=== PATIENT | female | born 1970 | race Caucasian/White ===

== ENCOUNTER → 2017-09-24 | Outpatient (CLI) | payer BC ==
--- NOTE | 2017-09-24 16:18 | RAD ---
Transabdominal pelvic ultrasound 09/24/2017 Indication: Pelvic pain, approximately 2 weeks. Discussion: Ultrasound evaluation of the pelvis is performed. Static images are submitted to PACS. No comparison studies are available. Transvaginal exam was deferred by the patient. Limited visualization of the bladder is unremarkable. The uterus measures 7.3 x 5.2 x 2.9 cm. No free fluid is seen in the pelvis. No focal uterine lesions are identified. The endometrial somewhat poorly visualized but measures approximately 5 mm in diameter. The right ovary measures 2.3 x 3.6 x 3.4 cm. Probable cyst or follicle is seen within the right ovary measuring 1.5 cm in diameter. Evaluation is somewhat limited unenhanced abdominal exam. The left ovary is nonvisualized. Patient reports prior left oophorectomy. Impression: Probable 1.5 cm cyst or follicle within the right ovary. Transabdominal imaging imaging is somewhat limited for evaluation. 3 month follow-up exam could be performed to ensure stability.
== END | disposition home or self-care (01) ==
LOC: US 13:41
PROVIDERS: ATTEND Family Medicine
DX: R10.2 Pelvic and perineal pain (principal)
CPT/HCPCS: 76856

== ENCOUNTER 2018-01-07 08:39 | Emergency (ER) | payer BC ==
[~2018-01-07] VITALS: Ht 177.8 cm; Wt 102.1 kg
--- NOTE | 2018-01-07 09:06 | EKG ---
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
[2018-01-07 09:09] LABS: BASO # 0.1 x10^3/uL (0.0-0.2); BASO % 1 % (0-3); EOS # 0.1 x10^3/uL (0.0-0.7); EOS % 2 % (0-3); HEMATOCRIT 39.7 % (36.0-47.0); HEMOGLOBIN 13.3 g/dL (12.0-15.5); LYMPH # 1.3 x10^3/uL (1.0-4.8); LYMPH % 19 % (24-48); MEAN CORPUSCULAR HEMOGLOBIN 30 pg (25-35); MEAN CORPUSCULAR HGB CONC 34 g/dL (31-37); MEAN CORPUSCULAR VOLUME 89 fL (79-100); MONO # 0.6 x10^3/uL (0.0-1.1); MONO % 8 % (0-9); NEUT # 5.1 x10^3uL (1.8-7.7); NEUT % 71 % (31-73); PLATELET COUNT 329 x10^3/uL (140-400); RED BLOOD COUNT 4.46 x10^6/uL (3.50-5.40); RED CELL DISTRIBUTION WIDTH 14.9 % (11.5-14.5); WHITE BLOOD COUNT 7.2 x10^3/uL (4.0-11.0)
[2018-01-07] MEDS ORDERED: ASPIRIN 81 MG TAB.CHEW PO ONE (09:15)
--- NOTE | 2018-01-07 09:16 | RAD ---
Portable chest, 01/07/2018: HISTORY: Chest pain The heart size and pulmonary vascularity are normal. No pulmonary infiltrates are seen. There is no evidence of pleural fluid. IMPRESSION: No acute cardiopulmonary abnormality is detected. Electronically signed by: Karan Bee MD (01/07/2018 9:13 AM) [facility]
[2018-01-07 09:41] LABS: ALBUMIN 3.6 g/dL (3.4-5.0); ALBUMIN/GLOBULIN RATIO 0.8 (1.0-1.7); CALCIUM 9.2 mg/dL (8.5-10.1); CREATININE 0.8 mg/dL (0.6-1.0); GFR 77.2; MAGNESIUM 2.2 mg/dL (1.8-2.4); POTASSIUM 3.6 mmol/L (3.5-5.1); TOTAL BILIRUBIN 0.4 mg/dL (0.2-1.0); TOTAL PROTEIN 8.3 g/dL (6.4-8.2)
--- NOTE | 2018-01-07 11:00 | RAD ---
EXAM: Abdomen sonogram. HISTORY: Epigastric and left chest pain. TECHNIQUE: Sonographic imaging of the abdomen was performed. COMPARISON: None. FINDINGS: The right hepatic lobe is mildly enlarged. No focal hepatic lesion is seen. The gallbladder is unremarkable. The common bile duct is normal in caliber. The right kidney, pancreas and inferior vena cava are unremarkable. The aorta is partially obscured. IMPRESSION: 1. Mildly enlarged right hepatic lobe. 2. Otherwise, unremarkable abdomen sonogram. Electronically signed by: Krista Barker MD (01/07/2018 10:57 AM) [facility]
[2018-01-07] MEDS ORDERED: ACET-704 PO (11:35)
--- NOTE | 2018-01-07 11:35 | PHYS DOC ---
Past History Past Medical History: Hypertension, Other Past Surgical History: No Surgical History Smoking: Non-smoker Alcohol Use: None Drug Use: None Adult General Chief Complaint Chief Complaint: CHEST PAIN HPI HPI 47-year-old male patient with history of hypertension complaining of intermittent episodes of left-sided chest pain for the last 3 weeks that usually happens several times a day as a sharp and aching pain without radiation. Patient rated her pain 6-7 and denies shortness of breath, nausea and vomiting, fever and chills, palpitation. Patient states she thinks her pain is related to stress. Patient states she had the same pain 3 years ago and had negative cardiac evaluation with diagnose of musculoskeletal pain. Review of Systems Review of Systems Constitutional: Denies fever or chills [] Eyes: Denies change in visual acuity, redness, or eye pain [] HENT: Denies nasal congestion or sore throat [] Respiratory: Denies cough or shortness of breath [] Cardiovascular: No additional information not addressed in HPI [] GI: Denies abdominal pain, nausea, vomiting, bloody stools or diarrhea [] : Denies dysuria or hematuria [] Musculoskeletal: Denies back pain or joint pain [] Integument: Denies rash or skin lesions [] Neurologic: Denies headache, focal weakness or sensory changes [] Endocrine: Denies polyuria or polydipsia [] All other systems were reviewed and found to be within normal limits, except as documented in this note. Current Medications Current Medications Current Medications Medications (Trade) Dose Ordered Sig/Bert Start Time Stop Time Status Last Admin Dose Admin Aspirin (Children'S Aspirin) 324 mg 1X ONCE 01/07/18 09:15 01/07/18 09:16 DC 01/07/18 09:47 325 MG Allergies Allergies Allergies Coded Allergies Type Severity Reaction Last Updated Verified Sulfa (Sulfonamide Antibiotics) Allergy Unknown 01/07/18 Yes ciprofloxacin Allergy Unknown 01/07/18 Yes naproxen Allergy Unknown 01/07/18 Yes tramadol Allergy Unknown 01/07/18 Yes Physical Exam Physical Exam Constitutional: Well nourished, mild distress, non-toxic appearance. [] HENT: Normocephalic, atraumatic. Eyes: PERRLA, EOMI, conjunctiva normal, no discharge. [] Neck: Normal range of motion, no tenderness, supple, no stridor. [] Cardiovascular:Heart rate regular rhythm, no murmur [] Lungs & Thorax: Bilateral breath sounds clear to auscultation, reproducible left-sided chest wall pain. [] Abdomen: Bowel sounds normal, soft, no tenderness, no masses, no pulsatile masses. [] Skin: Warm, dry, no erythema, no rash. [] Back: No tenderness, no CVA tenderness. [] Extremities: No tenderness, no cyanosis, no clubbing, ROM intact, no edema. [] Neurologic: Alert and oriented X 3, normal motor function, normal sensory function, no focal deficits noted. [] Psychologic: Affect anxious, judgement normal, mood normal. [] Current Patient Data Vital Signs Vital Signs Date Time Temp Pulse Resp B/P (MAP) Pulse Ox O2 Delivery O2 Flow Rate FiO2 01/07/18 08:45 98.7 75 13 99 Room Air Lab Results Laboratory Tests Test 01/07/18 08:56 White Blood Count 7.2 x10^3/uL (4.0-11.0) Red Blood Count 4.46 x10^6/uL (3.50-5.40) Hemoglobin 13.3 g/dL (12.0-15.5) Hematocrit 39.7 % (36.0-47.0) Mean Corpuscular Volume 89 fL (79-100) Mean Corpuscular Hemoglobin 30 pg (25-35) Mean Corpuscular Hemoglobin Concent 34 g/dL (31-37) Red Cell Distribution Width 14.9 % (11.5-14.5) H Platelet Count 329 x10^3/uL (140-400) Neutrophils (%) (Auto) 71 % (31-73) Lymphocytes (%) (Auto) 19 % (24-48) L Monocytes (%) (Auto) 8 % (0-9) Eosinophils (%) (Auto) 2 % (0-3) Basophils (%) (Auto) 1 % (0-3) Neutrophils # (Auto) 5.1 x10^3uL (1.8-7.7) Lymphocytes # (Auto) 1.3 x10^3/uL (1.0-4.8) Monocytes # (Auto) 0.6 x10^3/uL (0.0-1.1) Eosinophils # (Auto) 0.1 x10^3/uL (0.0-0.7) Basophils # (Auto) 0.1 x10^3/uL (0.0-0.2) Prothrombin Time 10.5 SEC (9.4-11.4) Prothrombin Time INR 1.0 (0.9-1.1) Sodium Level 137 mmol/L (136-145) Potassium Level 3.6 mmol/L (3.5-5.1) Chloride Level 103 mmol/L (98-107) Carbon Dioxide Level 26 mmol/L (21-32) Anion Gap 8 (6-14) Blood Urea Nitrogen 11 mg/dL (7-20) Creatinine 0.8 mg/dL (0.6-1.0) Estimated GFR (Cockcroft-Gault) 77.2 BUN/Creatinine Ratio 14 (6-20) Glucose Level 92 mg/dL (70-99) Calcium Level 9.2 mg/dL (8.5-10.1) Magnesium Level 2.2 mg/dL (1.8-2.4) Total Bilirubin 0.4 mg/dL (0.2-1.0) Aspartate Amino Transferase (AST) 16 U/L (15-37) Alanine Aminotransferase (ALT) 20 U/L (14-59) Alkaline Phosphatase 105 U/L (46-116) Creatine Kinase 71 U/L (26-192) Creatine Kinase MB (Mass) 0.6 ng/mL (0.0-3.6) Creatine Kinase MB Relative Index 0.8 % (0-4) Troponin I Quantitative < 0.017 ng/mL (0-0.055) HZ-Rny-V-Type Natriuretic Peptide 129 pg/mL (0-124) H Total Protein 8.3 g/dL (6.4-8.2) H Albumin 3.6 g/dL (3.4-5.0) Albumin/Globulin Ratio 0.8 (1.0-1.7) L Lipase 87 U/L (73-393) EKG EKG EKG interpreted by me. EKG at 0848 showed normal sinus rhythm at rate of 76, no acute ST and T-wave abnormalities, poor R-wave progress in anteroseptal leads.[] Radiology/Procedures Radiology/Procedures [address] [address] IMAGING REPORT Signed PATIENT: RAFAELA BUCIO ACCOUNT: [id number] : 1970 LOCATION: ER AGE: 47 SEX: F EXAM STATUS: REG ER ORD. PHYSICIAN: SEN HERNANDEZ MD REASON: chest pain PROCEDURE: PORTABLE CHEST 1V Portable chest, 01/07/2018: HISTORY: Chest pain The heart size and pulmonary vascularity are normal. No pulmonary infiltrates are seen. There is no evidence of pleural fluid. IMPRESSION: No acute cardiopulmonary abnormality is detected. Electronically signed by: Karan Bee MD (01/07/2018 9:13 AM) [facility] DICTATED AND SIGNED BY: KARAN BEE MD DATE: 01/07/18 09 CC: RAFAELA LIPSCOMB MD; SEN HERNANDEZ MD ~ [][place] [address] IMAGING REPORT Signed PATIENT: RAFAELA BUCIO ACCOUNT: [id number] : 1970 LOCATION: ER AGE: 47 SEX: F EXAM STATUS: REG ER ORD. PHYSICIAN: SEN HERNANDEZ MD REASON: epigastric and left chest pain PROCEDURE: ABDOMEN LTD EXAM: Abdomen sonogram. HISTORY: Epigastric and left chest pain. TECHNIQUE: Sonographic imaging of the abdomen was performed. COMPARISON: None. FINDINGS: The right hepatic lobe is mildly enlarged. No focal hepatic lesion is seen. The gallbladder is unremarkable. The common bile duct is normal in caliber. The right kidney, pancreas and inferior vena cava are unremarkable. The aorta is partially obscured. IMPRESSION: 1. Mildly enlarged right hepatic lobe. 2. Otherwise, unremarkable abdomen sonogram. Electronically signed by: Krista Coronado MD (01/07/2018 10:57 AM) [place] [id number] DICTATED AND SIGNED BY: KRISTA CORONADO MD DATE: 01/07/18 105 CC: RAFAELA LIPSCOMB MD; SEN HERNANDEZ MD ~ Course & Med Decision Making Course & Med Decision Making Pertinent Labs and Imaging studies reviewed. (See chart for details) Evaluation of patient in ER showed 47-year-old female patient with intermittent episodes of left-sided chest pain for more than 3 weeks. Patient was anxious and had reproducible left-sided chest pain. Labs and chest x-ray and gallbladder ultrasound and EKG was unremarkable. Patient treated with Toradol and felt better with her pain. Patient instructed to follow-up with her primary care physician regarding the sclerae are chest pain. [] Dragon Disclaimer Dragon Disclaimer This electronic medical record was generated, in whole or in part, using a voice recognition dictation system. Departure Departure: Impression: Primary Impression: Musculoskeletal chest pain Disposition: HOME, SELF-CARE (at 1133) Condition: IMPROVED Referrals: RAFAELA LIPSCOMB MD (PCP) Patient Instructions: Musculoskeletal Pain Additional Instructions: Follow-up with your primary care physician in 3-5 days Return to ER if not getting better Scripts Acetaminophen With Codeine (TYLENOL WITH CODEINE #3 TABLET) 1 Each Tablet 1 TAB PO Q6HRS, #14 TAB Prov: SEN HERNANDEZ MD 01/07/18 SEN HERNANDEZ MD Jan 07, 2018 11:35
[2018-01-07 11:41] VITALS: BP 187/108
== END 2018-01-07 11:47 | disposition home or self-care (01) ==
LOC: ER 08:39
DX: R07.89 Other chest pain (principal); I10 Essential (primary) hypertension; Z88.2 Allergy status to sulfonamides; Z88.1 Allergy status to other antibiotic agents; Z88.6 Allergy status to analgesic agent
CPT/HCPCS: 36415; 71045; 76705; 80053; 82553; 83690; 83735; 83880; 84484; 85025; 85610; 93005; 99285-25

== ENCOUNTER 2018-01-13 20:04 | Inpatient (IN) | payer BC ==
[~2018-01-13] VITALS: Ht 177.8 cm; Wt 116.2 kg
[~2018-01-13 20:04] MED LIST: ACET-704 PO
[2018-01-13] MEDS ORDERED: ASPIRIN 81 MG TAB.CHEW PO ONE (20:45)
[2018-01-13] MEDS ORDERED: ONDANSETRON PF 4 MG/2 ML VIAL. IV ONE (20:45)
--- NOTE | 2018-01-13 20:51 | PHYS DOC ---
Past History Past Medical History: Hypertension, Other Past Surgical History: Oophorectomy Smoking: Non-smoker Alcohol Use: None Drug Use: None Adult General Chief Complaint Chief Complaint: CHEST PAIN HPI HPI 47-year-old female presents with chest pain. Patient states the pain started around 5:30 PM. She rates it as a 3 out of 10 dull pain in the left side of her chest. She said it is worse with coughing. She denies diaphoresis or shortness of breath. The patient has felt "under the weather" most of the day. She has had 4 episodes of nonbloody, nonbilious vomiting. She denies fever, chills, diarrhea, or constipation. No known sick contacts. The patient was seen in this ED last week with similar chest pain. She was not kept overnight. Her only diagnosis at that time she says was her blood pressure was a little high. She was discharged home with no further issues until today. Patient also states that she had a cough all day that started this morning. "It seemed like allergies coming on" but then she had vomiting as well. No history of stress test or cardiac catheter. Review of Systems Review of Systems Constitutional: Denies fever or chills [] Eyes: Denies change in visual acuity, redness, or eye pain [] HENT: Denies nasal congestion or sore throat [] Respiratory: Denies cough or shortness of breath [] Cardiovascular: No additional information not addressed in HPI [] GI: 4 episodes of vomiting[] : Denies dysuria or hematuria [] Musculoskeletal: Denies back pain or joint pain [] Integument: Denies rash or skin lesions [] Neurologic: Denies headache, focal weakness or sensory changes [] Endocrine: Denies polyuria or polydipsia [] All other systems were reviewed and found to be within normal limits, except as documented in this note. Allergies Allergies Allergies Coded Allergies Type Severity Reaction Last Updated Verified Sulfa (Sulfonamide Antibiotics) Allergy Unknown 01/07/18 Yes ciprofloxacin Allergy Unknown 01/07/18 Yes naproxen Allergy Unknown 01/07/18 Yes tramadol Allergy Unknown 01/07/18 Yes Physical Exam Physical Exam Constitutional: Well developed, well nourished, no acute distress, non-toxic appearance. [] HENT: Normocephalic, atraumatic, bilateral external ears normal, oropharynx moist, no oral exudates, nose normal. [] Eyes: PERRLA, EOMI, conjunctiva normal, no discharge. [] Neck: Normal range of motion, no tenderness, supple, no stridor. [] Cardiovascular:Heart rate regular rhythm, no murmur. No chest wall tenderness.[ ] Lungs & Thorax: Bilateral breath sounds clear to auscultation [] Abdomen: Bowel sounds normal, soft, no tenderness, no masses, no pulsatile masses. [] Skin: Warm, dry, no erythema, no rash. [] Back: No tenderness, no CVA tenderness. [] Extremities: No tenderness, no cyanosis, no clubbing, ROM intact, no edema. [] Neurologic: Alert and oriented X 3, normal motor function, normal sensory function, no focal deficits noted. [] Psychologic: Affect normal, judgement normal, mood normal. [] Current Patient Data Vital Signs Vital Signs Date Time Temp Pulse Resp B/P (MAP) Pulse Ox O2 Delivery O2 Flow Rate FiO2 01/13/18 20:11 97.9 88 20 99 Room Air EKG EKG Sinus rhythm, rate 83, normal axis, no ST elevations or depressions. Inverted T wave in lead 3[] Radiology/Procedures Radiology/Procedures [] Impressions: CHEST PA LATERAL dated 01/13/2018 8:38 PM. Comparison: 01/07/2018 Clinical Indication: Chest pain, cough, congestion. Findings: PA and lateral views of the chest were obtained. Heart and mediastinal contours within normal limits. Lungs are clear without focal consolidation. Vascular interstitium within normal limits. No pleural effusion or pneumothorax. Impression: No acute radiographic abnormality. Electronically signed by: Marin Johnson MD (01/13/2018 10:44 PM) [facility] Course & Med Decision Making Course & Med Decision Making Pertinent Labs and Imaging studies reviewed. (See chart for details) Patient's labs are unremarkable. Her EKG is unremarkable. Her troponin is negative. Chest x-ray is unremarkable. Given this is the patient's second visit to the ED in less than a week with chest pain, I feel it is prudent to admit her for chest pain rule out. Dr. Ulrich has accepted the patient for admission. [] Dragon Disclaimer Dragon Disclaimer This electronic medical record was generated, in whole or in part, using a voice recognition dictation system. Departure Departure: Referrals: RAFAELA LIPSCOMB MD (PCP) MIKA AN DO Jan 13, 2018 20:51
--- NOTE | 2018-01-13 21:33 | EKG ---
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
[2018-01-13 22:31] LABS: BASO # 0.1 x10^3/uL (0.0-0.2); BASO % 1 % (0-3); EOS # 0.3 x10^3/uL (0.0-0.7); EOS % 4 % (0-3); HEMATOCRIT 38.5 % (36.0-47.0); HEMOGLOBIN 12.8 g/dL (12.0-15.5); LYMPH # 1.3 x10^3/uL (1.0-4.8); LYMPH % 16 % (24-48); MEAN CORPUSCULAR HEMOGLOBIN 30 pg (25-35); MEAN CORPUSCULAR HGB CONC 33 g/dL (31-37); MEAN CORPUSCULAR VOLUME 90 fL (79-100); MONO # 0.9 x10^3/uL (0.0-1.1); MONO % 11 % (0-9); NEUT # 5.8 x10^3uL (1.8-7.7); NEUT % 69 % (31-73); PLATELET COUNT 242 x10^3/uL (140-400); RED BLOOD COUNT 4.29 x10^6/uL (3.50-5.40); RED CELL DISTRIBUTION WIDTH 14.8 % (11.5-14.5); WHITE BLOOD COUNT 8.4 x10^3/uL (4.0-11.0)
[2018-01-13 22:47] LABS: ALBUMIN 3.5 g/dL (3.4-5.0); ALBUMIN/GLOBULIN RATIO 0.8 (1.0-1.7); CALCIUM 8.8 mg/dL (8.5-10.1); CREATININE 0.8 mg/dL (0.6-1.0); GFR 77.2; TOTAL BILIRUBIN 0.3 mg/dL (0.2-1.0); TOTAL PROTEIN 7.8 g/dL (6.4-8.2)
--- NOTE | 2018-01-13 22:48 | RAD ---
CHEST PA LATERAL dated 01/13/2018 8:38 PM. Comparison: 01/07/2018 Clinical Indication: Chest pain, cough, congestion. Findings: PA and lateral views of the chest were obtained. Heart and mediastinal contours within normal limits. Lungs are clear without focal consolidation. Vascular interstitium within normal limits. No pleural effusion or pneumothorax. Impression: No acute radiographic abnormality. Electronically signed by: Marin Johnson MD (01/13/2018 10:44 PM) [facility]
[2018-01-14] MEDS ORDERED: ONDANSETRON PF 4 MG/2 ML VIAL. IV PRN (00:30)
[2018-01-14 01:44] VITALS: BP 144/89
[2018-01-14] MEDS ORDERED: LISI-338 PO (02:42)
[2018-01-14] MEDS ORDERED: PSYL3.4P PO (02:42)
[2018-01-14 06:30] VITALS: BP 121/80
[2018-01-14] MEDS ORDERED: ACETAMINOPHEN 325 MG TABLET PO PRN (09:00)
[2018-01-14 11:26] VITALS: BP 136/83
[2018-01-14 12:54] LABS: ALBUMIN 3.1 g/dL (3.4-5.0); ALBUMIN/GLOBULIN RATIO 0.8 (1.0-1.7); CALCIUM 8.5 mg/dL (8.5-10.1); CREATININE 0.8 mg/dL (0.6-1.0); GFR 77.2; POTASSIUM 3.9 mmol/L (3.5-5.1); TOTAL BILIRUBIN 0.3 mg/dL (0.2-1.0); TOTAL PROTEIN 7.1 g/dL (6.4-8.2)
--- NOTE | 2018-01-14 12:57 | HP ---
ADMIT DATE: 01/14/2018 HISTORY OF PRESENT ILLNESS: The patient is a 47-year-old female patient, who came to the Emergency Room yesterday complaining of chest pain that started around 5:30 p.m., she rated as 3/10, dull pain in her left side of her chest. She said it is worse with coughing. She denied any diaphoresis or shortness of breath. She had 4 episodes of nonbloody, nonbilious vomiting. She denied any fever, chills, diarrhea or constipation. No known sick contacts. The patient was seen in the Emergency Room last week with similar chest pain. At that time, her blood pressure was little high. She was discharged home with no further issues. The patient also stated that she had a cough all day that started this morning and seemed to be like allergies coming on. She stated that she has never had any stress test or cardiac catheterization before. She was evaluated in the Emergency Room and her lab work was mostly unremarkable. Her first set of cardiac enzymes showed troponin to be less than 0.017. On further questioning her, she stated that all her symptoms are similar to her presentation when she has had ulcers in her stomach. At that time, she had upper and lower GI endoscopy and was diagnosed with what seemed to be antral gastric ulcer. PAST MEDICAL HISTORY: Significant for peptic ulcer disease and hypertension. PAST SURGICAL HISTORY: Significant for left oophorectomy for dermoid cyst. She has also had esophagogastroduodenoscopy and colonoscopy. ALLERGIES: She is allergic to SULFA DRUGS, CIPROFLOXACIN, NAPROXEN, and TRAMADOL. MEDICATIONS: She is currently on following medications: She is on lisinopril 5 mg once a day, Tylenol with Codeine 1 tablet every 6 hours and Psyllium Husk for Metamucil single packet 1 packet twice a day. FAMILY HISTORY: She has 2 brothers older has hypertension and diabetes. He is 58 years old. Next brother is 57-year-old and healthy. Her father is alive at the age of 87 and is known to have hypertension, Alzheimer's disease. Her mother is alive at age 80 and has diabetes. SOCIAL HISTORY: She is single, never , has no children. She does not smoke, drink alcohol or use recreational drugs. 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 REVIEW OF SYSTEMS: The patient denied any blurring of vision, cataract, glaucoma or macular degeneration. Denied any earache, tinnitus or sensorineural deafness. Denied any nosebleeds, stuffy nose or postnasal drip. Denied any sore throat, sore tongue, toothache, hoarseness of voice or difficulty swallowing. Did have recurrent bouts of nausea, vomiting. She vomited once this morning. There is no blood in the vomitus. Denied any diarrhea or constipation. Denied any hematemesis, melena, or hematochezia. Denied any dysuria, frequency or hematuria. Did complain of left-sided chest pain, denied any shortness of breath, orthopnea, paroxysmal nocturnal dyspnea. She has cough, mostly dry. Denied any chills, rigors or fever. PHYSICAL EXAMINATION: GENERAL: On examining her, she looked well and was clearly in no apparent respiratory distress. No pallor, jaundice, cyanosis, or thyromegaly. No jugular venous distension. No limb edema. VITAL SIGNS: Her heart rate was 75, blood pressure was 125/86, temperature was 97.9, respiratory rate 20, and oxygen saturation was 97%. HEAD, EYES, EARS, NOSE AND THROAT: Showed normocephalic, atraumatic. NECK: Supple. HEART: Showed normal first and second heart sounds with no gallop, rub or murmur. CHEST: Clear to auscultation. No crepitation or rhonchi. ABDOMEN: Distended, soft, and nontender. NEUROLOGIC: She was awake, alert, responding appropriately. All cranial nerves intact. EXTREMITIES: She moves extremities without difficulty. LABORATORY DATA: On admission showed a serum sodium 136, potassium 4, chloride 102, bicarbonate 26, anion gap of 8, BUN 10, creatinine 0.8, estimated GFR was 77 mL per minute. Her glucose was 95, calcium was 8.8. Total bilirubin, AST, ALT, alkaline phosphatase were normal. Total protein 7.8, albumin 3.5. White cell count was 8400, hemoglobin 12.8, hematocrit 38, MCV 90 and platelet count 242,000 with normal manual differential. Her chest x-ray showed that the heart and mediastinum contour is within normal limits. Lungs are clear without focal consolidation, vascular interstitium are within normal limits. No pleural effusion or pneumothorax. IMPRESSION: In summary, this is a 47-year-old female patient, who comes with recurrent bouts of nausea, vomiting and left-sided chest pain. She apparently has history of peptic ulcer disease before. She continued to have nausea and vomiting. cardiac enzyme was negative. PLAN: My plan is to start her on IV fluid, IV Protonix and Zofran and start her on a clear liquid diet and advance as tolerated. JUSTUS WALSH MD DR: JOSE/shahana JOB#: [id number] / [id number]
[2018-01-14] MEDS: POTASSIUM CL 20MEQ D5-0.9%NACL 1,000 ML IV SCH ×2 (13:00→21:19)
[2018-01-14] MEDS: PANTOPRAZOLE IV 40 MG VIAL. IVP SCH ×2 (13:00→21:16)
[2018-01-14 15:05] VITALS: BP 118/77
[2018-01-14 19:15] VITALS: BP 133/85
[2018-01-14 22:25] VITALS: BP 111/72
--- NOTE | 2018-01-14 22:45 | PN ---
DATE: 01/14/2018 SUBJECTIVE: The patient is a 47-year-old female patient who came in yesterday with chest pain, recurrent bouts of nausea, and vomiting. She has 2 more sets of cardiac enzymes, which were negative. The pain only happens when she is coughing and she continued to have recurrent bouts of nausea, vomiting, though no hematemesis or melena. OBJECTIVE: GENERAL: When I examined her this afternoon, she looked well and was clearly in no apparent respiratory distress. No pallor, jaundice, cyanosis, or thyromegaly. No jugular venous distension. No lower limb edema. VITAL SIGNS: Her heart rate was 72, blood pressure was 136/83, temperature was 98.2, respiratory rate 20, and oxygen saturation was 94%. HEAD, EYES, EARS, NOSE AND THROAT: Normocephalic, atraumatic. NECK: Supple. HEART: Showed normal first and second heart sounds. No gallop, rub or murmur. CHEST: Clear to auscultation. No crepitation or rhonchi. ABDOMEN: Distended, soft, and nontender. No guarding or rigidity. No organomegaly. Hernial orifice intact. Bowel sounds normal. NEUROLOGIC: She was awake, alert, responding appropriately. Cranial nerves intact. She moves extremities without difficulty. She ambulates without assistance or assistive devices. LABORATORY DATA: This morning, she has 2 sets of cardiac enzymes, which were negative. PLAN: Given that she has a history of gastric ulcers, I decided to start her on Protonix 40 mg intravenous twice a day, Zofran 4 mg intravenous every 4 hours, I started her on D5 half normal with 20 mEq of potassium chloride intravenous 800 mL per hour and repeat her labs lipase and start her on a clear liquid diet, to advance as tolerated. JUSTUS WALSH MD DR: JOSE/shahana JOB#: [id number] / [id number]
[2018-01-15 05:50] VITALS: BP 118/78
[2018-01-15 06:19] LABS: CALCIUM 8.2 mg/dL (8.5-10.1); CREATININE 0.7 mg/dL (0.6-1.0); GFR 90.1
[2018-01-15 06:55] LABS: BASO % 1 % (0-3); EOS # 0.3 x10^3/uL (0.0-0.7); EOS % 5 % (0-3); HEMATOCRIT 35.7 % (36.0-47.0); LYMPH % 21 % (24-48); MEAN CORPUSCULAR HEMOGLOBIN 30 pg (25-35); MEAN CORPUSCULAR HGB CONC 34 g/dL (31-37); MEAN CORPUSCULAR VOLUME 89 fL (79-100); MONO # 0.7 x10^3/uL (0.0-1.1); MONO % 15 % (0-9); NEUT # 2.8 x10^3uL (1.8-7.7); NEUT % 58 % (31-73); PLATELET COUNT 249 x10^3/uL (140-400); RED BLOOD COUNT 4.01 x10^6/uL (3.50-5.40); RED CELL DISTRIBUTION WIDTH 14.9 % (11.5-14.5); WHITE BLOOD COUNT 4.8 x10^3/uL (4.0-11.0)
[2018-01-15] MEDS: POTASSIUM CL 20MEQ D5-0.9%NACL 1,000 ML IV SCH (07:30)
[2018-01-15] MEDS: PANTOPRAZOLE IV 40 MG VIAL. IVP SCH (07:40)
[2018-01-15 10:33] VITALS: BP 120/78
[2018-01-15] MEDS ORDERED: PANT40TA3 PO (14:42)
[2018-01-15] MEDS ORDERED: SUCR1TAB35 PO (14:42)
--- NOTE | 2018-01-15 19:26 | DS ---
DATE OF DISCHARGE: 01/15/2018 HOSPITAL COURSE: The patient is a 47-year-old female patient who was admitted originally with chest pain that started around 5:30, rated about 3/10, dullness on the left side of her chest that is worse with coughing. She denied any diaphoresis or shortness of breath. She has 4 episodes of nonbloody, nonbilious vomiting. She denied any fever, chills, rigors, diarrhea or constipation. She is known to have gastric ulcer before and has had similar presentation, we did actually, she was evaluated in the Emergency Room, has had her 3 sets of cardiac enzymes that were negative and was less than 0.017. She was started on IV fluid, kept n.p.o., started on IV Protonix and IV Zofran. We did start her on a clear liquid diet and advanced to a full liquid diet and eventually to soft diet. She tolerated that very well. She has no further episodes of nausea, vomiting and a decision was made to discharge her home to continue treatment with proton pump inhibitor as well as Carafate. PHYSICAL EXAMINATION: GENERAL: When I examined her today, she looked well and was clearly in no apparent respiratory distress. No pallor, jaundice, cyanosis, or thyromegaly. No jugular venous distension. No lower limb edema. VITAL SIGNS: Her heart rate was 67, blood pressure was 120/78, temperature was 98.4, respiratory rate 20, and oxygen saturation was 94%. HEENT: Examination of the head, eyes, ears, nose and throat showed normocephalic, atraumatic. NECK: Supple. HEART: Showed normal first and second heart sounds with no gallop, rub or murmur. CHEST: Clear to auscultation. No crepitation or rhonchi. ABDOMEN: Distended, soft, nontender. NEUROLOGIC: She is awake, alert, responding appropriately. Her cranial nerves are intact. EXTREMITIES: She moves extremities without difficulty. She ambulates without assistance or assistive devices. Her intake over the last 24 hours was 2800. No output was recorded. LABORATORY DATA: Her lab work this morning showed a white cell count 4800, hemoglobin 12, hematocrit 36, MCV 89, and platelet count 249,000. Her serum sodium was 139, potassium 4, chloride 105, bicarbonate 24, anion gap of 10, BUN 8, creatinine 0.7, estimated GFR was 90 mL per minute. Her glucose 107, calcium was 8.2. DISCHARGE MEDICATIONS: The patient was discharged home to continue on Protonix 40 mg once a day, sucralfate 1 g 4 times a day. She should continue also on Tylenol 3 one tablet every 6 hours, lisinopril 5 mg once a day, and Metamucil Fiber single packet 1 packet twice a day. FINAL DISCHARGE DIAGNOSES: Recurrent left-sided chest pain, no evidence of myocardial infarction. Recurrent bouts of nausea, vomiting with history of gastric ulcer treated with IV fluid, IV Protonix. She is known to have hypertension and chronic constipation. JUSTUS WALSH MD DR: JOSE/shahana JOB#: [id number] / [id number]
== END 2018-01-15 15:20 | disposition home or self-care (01) | DRG 313 ==
LOC: ER 20:04 → 1 SOUTH 23:10 → OBSVTOIN 01-14 13:42
PROVIDERS: ADMIT Internal Medicine; ATTEND Internal Medicine
DX: R07.9 Chest pain, unspecified (principal); I10 Essential (primary) hypertension; K59.09 Other constipation; Z82.49 Family history of ischemic heart disease and other diseases of the circulatory system; Z82.0 Family history of epilepsy and other diseases of the nervous system; Z83.3 Family history of diabetes mellitus; Z87.11 Personal history of peptic ulcer disease; Z90.721 Acquired absence of ovaries, unilateral; Z88.1 Allergy status to other antibiotic agents; Z88.2 Allergy status to sulfonamides; Z88.8 Allergy status to other drugs, medicaments and biological substances; Z79.899 Other long term (current) drug therapy
CPT/HCPCS: 36415; 71046; 80048; 80053; 83690; 84484; 85025; 93005; 96374; C9113; G0378; G0379; J2405; 99285-25

== ENCOUNTER → 2021-02-06 | Emergency (ER) | payer OTHER ==
[~2021-02-06] VITALS: Ht 175.3 cm; Wt 131.0 kg
[~2021-02-06] MED LIST changes: +LISI-517 PO; +ONDANSETRON ODT 4 MG TAB.RAPDIS ONE; +ONDANSETRON ODT 4 MG TAB.RAPDIS PO ONE; +PANT40TA3 PO; +PSYL3.4P PO; +SUCR1TAB35 PO
--- NOTE | 2021-02-06 18:59 | RAD ---
Exam: CT head INDICATION: Blurred vision TECHNIQUE: Sequential axial images through the head were obtained without the administration of IV co ntrast. Exposure: One or more of the following in the visualized dose reduction techniques were utilized for this examination: 1. Automated exposure control 2. Adjustment of the MA and/or KV according to patient size 3. Use of iterative of reconstructive technique Comparisons: None FINDINGS: No focal parenchymal lesion or hemorrhage is identified. There is no midline shift or sulcal effaceme nt. No acute vascular territory infarction is identified. Stewart-white distinction is preserved. The ventricular system is within normal limits without compression hydrocephalus. The basal cisterns are well maintained. The visualized portions of the paranasal sinuses and mastoid air cells are well-pneumatized. No acute fractures. IMPRESSION: No acute intracranial abnormality. Electronically signed by: Rosy Beck MD (02/06/2021 6:57 PM) [facility]
[2021-02-06 20:11] LABS: CALCIUM 8.5 mg/dL (8.5-10.1); CREATININE 0.7 mg/dL (0.6-1.0); GFR 88.9; POTASSIUM 4.3 mmol/L (3.5-5.1)
[2021-02-06 20:12] LABS: BASO % 0 % (0-3); EOS % 0 % (0-3); HEMATOCRIT 37.8 % (36.0-47.0); HEMOGLOBIN 12.3 g/dL (12.0-15.5); LYMPH % 10 % (24-48); MEAN CORPUSCULAR HEMOGLOBIN 29 pg (25-35); MEAN CORPUSCULAR HGB CONC 33 g/dL (31-37); MEAN CORPUSCULAR VOLUME 87 fL (79-100); MONO # 0.6 x10^3/uL (0.0-1.1); MONO % 5 % (0-9); NEUT # 8.7 x10^3uL (1.8-7.7); NEUT % 84 % (31-73); PLATELET COUNT 292 x10^3/uL (140-400); RED BLOOD COUNT 4.33 x10^6/uL (3.50-5.40); RED CELL DISTRIBUTION WIDTH 15.9 % (11.5-14.5); WHITE BLOOD COUNT 10.3 x10^3/uL (4.0-11.0)
[2021-02-06 20:17] LABS: ALBUMIN 3.6 g/dL (3.4-5.0); ALBUMIN/GLOBULIN RATIO 0.9 (1.0-1.7); TOTAL BILIRUBIN 0.2 mg/dL (0.2-1.0); TOTAL PROTEIN 7.8 g/dL (6.4-8.2)
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
[2021-02-06 20:42] LABS: CLARITY,URINE CLEAR; COLOR,URINE YELLOW
[2021-02-06 20:43] LABS: BACTERIA,URINE 0 /HPF (0-FEW); BILIRUBIN,URINE NEG (NEG); GLUCOSE,URINE NEG (NEG); NITRITE,URINE NEG (NEG); UROBILINOGEN,URINE 0.2 mg/dL (0.2 mg/dL); WBC,URINE 0 /HPF (0-4)
== END ==
LOC: ER 18:15
DX: I10 Essential (primary) hypertension (principal); R51.9 Headache, unspecified; Z88.2 Allergy status to sulfonamides; Z88.1 Allergy status to other antibiotic agents; Z88.6 Allergy status to analgesic agent
CPT/HCPCS: 36415; 70450; 80053; 81001; 81025; 85025; 99284; Q0162

== ENCOUNTER 2021-03-16 08:13 | Emergency (ER) | payer OTHER ==
[~2021-03-16] VITALS: Ht 177.8 cm; Wt 119.4 kg
[~2021-03-16 08:13] MED LIST changes: -ONDANSETRON ODT 4 MG TAB.RAPDIS ONE; -ONDANSETRON ODT 4 MG TAB.RAPDIS PO ONE
--- NOTE | 2021-03-16 08:53 | PHYS DOC ---
Past History Past Medical History: Hypertension, Other Additional Past Medical Histor: seasonal allergies, stomach ulcer Past Surgical History: Oophorectomy Smoking: Non-smoker Alcohol Use: None Drug Use: None General Adult EDM: Chief Complaint: ABDOMINAL PAIN HPI: HPI: 50-year-old female presents with nausea, vomiting, and diarrhea. This started yesterday morning very early. She had multiple episodes yesterday and is continued to have vomiting and diarrhea today. She cannot keep very liquids or solids at this time. She saw her primary care physician and he said that if she got worse she should come to the hospital. That is why she is here. She has had an intermittent cough without sputum production. She has been fully vaccinated against COVID-19. No reported fever or chills. Review of Systems: Review of Systems: Constitutional: Denies fever or chills Eyes: Denies change in visual acuity HENT: Denies nasal congestion or sore throat Respiratory: Cough without shortness of breath Cardiovascular: Denies chest pain or edema GI: Generalized abdominal pain, nausea, vomiting, diarrhea : Denies dysuria Musculoskeletal: Denies back pain or joint pain Integument: Denies rash Neurologic: Denies headache, focal weakness or sensory changes Endocrine: Denies polyuria or polydipsia Lymphatic: Denies swollen glands Psychiatric: Denies depression or anxiety Current Medications: Current Meds: Current Medications Medications (Trade) Dose Ordered Sig/Bret Start Time Stop Time Status Last Admin Dose Admin Famotidine (Pepcid Vial) 20 mg 1X ONCE 03/16/21 08:45 03/16/21 08:46 DC Info (Do NOT chart on this entry -- for MONITORING) 1 each PRN DAILY PRN 03/16/21 09:00 03/18/21 08:59 Iohexol (Omnipaque 300 Mg/ml) 75 ml 1X ONCE 03/16/21 08:45 03/16/21 08:48 DC Multi-Ingredient Mouthwash/Gargle (Gi Cocktail) 20 ml 1X ONCE 03/16/21 08:45 03/16/21 08:46 DC Pantoprazole Sodium (Protonix Vial) 40 mg 1X ONCE 03/16/21 08:45 03/16/21 08:46 DC Sodium Chloride 1,000 ml @ 1,000 mls/hr 1X ONCE 03/16/21 08:45 03/16/21 09:44 Allergies: Allergies: Allergies Coded Allergies Type Severity Reaction Last Updated Verified Sulfa (Sulfonamide Antibiotics) Allergy Intermediate 03/16/21 Yes ciprofloxacin Allergy Intermediate 03/16/21 Yes naproxen Allergy Intermediate 03/16/21 Yes tramadol Allergy Intermediate 03/16/21 Yes Physical Exam: PE: Constitutional: Well developed, well nourished, morbidly obese, no acute distress, non-toxic appearance. [] HENT: Normocephalic, atraumatic, bilateral external ears normal, oropharynx moist, no oral exudates, nose normal. [] Eyes: PERRLA, EOMI, conjunctiva normal, no discharge. [] Neck: Normal range of motion, no tenderness, supple, no stridor. [] Cardiovascular: Heart rate regular rhythm, no murmur [] Lungs & Thorax: Bilateral breath sounds clear to auscultation [] Abdomen: Bowel sounds normal, soft, mild generalized tenderness, no masses, no pulsatile masses. [] Skin: Warm, dry, no erythema, no rash. [] Back: No tenderness, no CVA tenderness. [] Extremities: No tenderness, no cyanosis, no clubbing, ROM intact, no edema. [] Neurologic: Alert and oriented X 3, normal motor function, normal sensory function, no focal deficits noted. [] Psychologic: Affect normal, judgement normal, mood normal. [] Current Patient Data: Vital Signs: Vital Signs Date Time Temp Pulse Resp B/P (MAP) Pulse Ox O2 Delivery O2 Flow Rate FiO2 03/16/21 08:15 98.7 91 17 157/93 (114) 96 Room Air EKG: EKG: [] Radiology/Procedures: Radiology/Procedures: [] Heart Score: C/O Chest Pain: N/A Risk Factors: Risk Factors: DM, Current or recent (<one month) smoker, HTN, HLP, family history of CAD, obesity. Risk Scores: Score 0 - 3: 2.5% MACE over next 6 weeks - Discharge Home Score 4 - 6: 20.3% MACE over next 6 weeks - Admit for Clinical Observation Score 7 - 10: 72.7% MACE over next 6 weeks - Early Invasive Strategies Course & Med Decision Making: Course & Med Decision Making Pertinent Labs and Imaging studies reviewed. (See chart for details) The patient's labs are essentially unremarkable. Her CT of the abdomen and pelvis does not show any acute findings. This is likely viral syndrome. I have recommended supportive care and will discharge her with a prescription for Zofran. In the ER we have given her Zofran and normal saline. Have given her 4 mg of morphine for her pain. I also gave her Pepcid, Protonix, GI cocktail but these were not terribly effective. The patient has been unwilling to urinate. Patient has finally urinated and the lab is back after more than 90 minutes. Urinalysis is negative for infection. She is stable for discharge at this time. [] Dragon Disclaimer: Dragon Disclaimer: This electronic medical record was generated, in whole or in part, using a voice recognition dictation system. Departure Departure: Impression: Primary Impression: Viral syndrome Disposition: HOME / SELF CARE / HOMELESS Condition: STABLE Referrals: RAFAELA LIPSCOMB MD (PCP) Patient Instructions: Abdominal Pain, [id number], Nausea and Vomiting, [id number] Scripts Ondansetron (ONDANSETRON ODT) 4 Mg Tab.rapdis 1 TAB PO PRN Q6-8HRS PRN for VOMITING, #16 TAB Prov: MIKA AN DO 03/16/21 MIKA AN DO Mar 16, 2021 08:53
[2021-03-16] MEDS ORDERED: CONTRAST GIVEN. MC PRN (09:00)
[2021-03-16 09:16] LABS: BASO % 0 % (0-3); CALCIUM 8.6 mg/dL (8.5-10.1); CREATININE 0.6 mg/dL (0.6-1.0); EOS % 0 % (0-3); GFR 106.3; HEMATOCRIT 37.7 % (36.0-47.0); HEMOGLOBIN 12.4 g/dL (12.0-15.5); LYMPH # 0.6 x10^3/uL (1.0-4.8); LYMPH % 10 % (24-48); MEAN CORPUSCULAR HEMOGLOBIN 28 pg (25-35); MEAN CORPUSCULAR HGB CONC 33 g/dL (31-37); MEAN CORPUSCULAR VOLUME 87 fL (79-100); MONO # 0.7 x10^3/uL (0.0-1.1); MONO % 10 % (0-9); NEUT # 5.3 x10^3uL (1.8-7.7); NEUT % 80 % (31-73); PLATELET COUNT 226 x10^3/uL (140-400); POTASSIUM 3.6 mmol/L (3.5-5.1); RED BLOOD COUNT 4.36 x10^6/uL (3.50-5.40); RED CELL DISTRIBUTION WIDTH 15.4 % (11.5-14.5); WHITE BLOOD COUNT 6.6 x10^3/uL (4.0-11.0)
[2021-03-16 09:21] LABS: ALBUMIN 3.4 g/dL (3.4-5.0); ALBUMIN/GLOBULIN RATIO 0.8 (1.0-1.7); TOTAL BILIRUBIN 0.6 mg/dL (0.2-1.0); TOTAL PROTEIN 7.8 g/dL (6.4-8.2)
[2021-03-16] MEDS: IOHEXOL 300 MG/ML 75 ML VIAL. IV ONE (09:31)
[2021-03-16] MEDS: ONDANSETRON PF 4 MG/2 ML VIAL. IVP ONE (09:38)
[2021-03-16] MEDS: FAMOTIDINE 20 MG/2 ML VIAL IVP ONE (09:39)
[2021-03-16] MEDS: IV NORMAL SALINE 1,000ML 1,000 ML IV ONE (09:40)
[2021-03-16] MEDS: PANTOPRAZOLE IV 40 MG VIAL. IVP ONE (09:40)
[2021-03-16] MEDS: LIDO:MAALOX 1:1 20 ML SINGLE DOSE. PO ONE (09:40)
--- NOTE | 2021-03-16 10:41 | RAD ---
CT ABDOMEN+PELVIS W History: EPIGASTRIC PAIN, NAUSEA/VOMITING, DIARRHEA X 2 DAY Comparison: None. Technique: After administration of intravenous contrast, helical CT of the abdomen and pelvis was per formed from the lung bases through the ischial tuberosities. Coronal and sagittal reconstructions wer e obtained. 75 mL of Omnipaque 300 were used. One or more of the following dose reduction techniques were utilized: Automated exposure control (AEC), Adjustment of mA and/or kV according to patient size , Use of iterative reconstruction technique such as ASiR, CT scan done according to ALARA and image g ently/image wisely Abdomen Findings: The visualized lung bases are clear. Liver measures 19.5 cm craniocaudad. The gallbladder, pancreas, spleen, and bilateral adrenal glands are normal. Symmetric renal enhancement. There is no focal renal mass. There is no hydronephrosis. The visualized loops of small bowel are normal. The visualized loops of large bowel are normal. There is no evidence of bowel obstruction. Appendix is normal. There is no free fluid. There is no mesenteric or retroperitoneal adenopathy. The abdominal aorta is normal in caliber. Pelvis Findings: Urinary bladder is normal. Uterus is present. No pelvic free fluid. There is no pelvic or inguinal ad enopathy. There is no acute bony abnormality. IMPRESSION: No acute findings. Electronically signed by: Jarod Alcantara MD (03/16/2021 10:38 AM) [id number]
[2021-03-16] MEDS ORDERED: ONDA4TAB12 PO (11:32)
[2021-03-16] MEDS: MORPHINE SULFATE 4 MG/ML DISP.SYRIN. IV ONE (11:35)
[2021-03-16 13:00] LABS: BACTERIA,URINE 0 /HPF (0-FEW); BILIRUBIN,URINE NEG (NEG); CLARITY,URINE HAZY; COLOR,URINE YELLOW; GLUCOSE,URINE NEG (NEG); NITRITE,URINE NEG (NEG); SQUAMOUS EPITHELIAL CELL,UR FEW /LPF; UROBILINOGEN,URINE 0.2 mg/dL (0.2 mg/dL)
[2021-03-16 13:10] VITALS: BP 147/81
== END 2021-03-16 13:20 | disposition home or self-care (01) ==
LOC: ER 08:13
DX: B34.9 Viral infection, unspecified (principal); I10 Essential (primary) hypertension; Z88.2 Allergy status to sulfonamides; Z88.1 Allergy status to other antibiotic agents
CPT/HCPCS: 36415; 74177; 80053; 81001; 83690; 85025; 96361; 96374; 96375; 99285; C9113; J2270; J2405; J3490; J7030; Q9967